=== PATIENT | female | born 1980 | race Caucasian/White ===

== ENCOUNTER → 2023-12-27 07:23 | Outpatient (REF) | payer OTHER, SELFPAY | LOC: RAD 07:23 | PROVIDERS: ATTENDING PHYSICIAN Physician Assistant; FAMILY PHYSICIAN Family Medicine | DX: E04.1 Nontoxic single thyroid nodule (principal) | CPT/HCPCS: 76536 ==

== ENCOUNTER → 2024-02-05 08:50 | Outpatient (REF) | payer OTHER, SELFPAY ==
[2024-02-05 09:05] VITALS: BP 103/59; BP_SYST 71
== END ==
LOC: RADI 08:50
PROVIDERS: ATTENDING PHYSICIAN Physician Assistant; FAMILY PHYSICIAN Family Medicine
DX: E04.1 Nontoxic single thyroid nodule (principal)
CPT/HCPCS: 88173; 10005

== ENCOUNTER → 2024-09-21 13:50 | Outpatient (REF) | payer OTHER, SELFPAY | LOC: WDC 13:50 | PROVIDERS: ATTENDING PHYSICIAN Obstetrics & Gynecology Gynecology | DX: Z12.31 Encounter for screening mammogram for malignant neoplasm of breast (principal) | CPT/HCPCS: 77063; 77067 ==

== ENCOUNTER → 2024-11-23 06:47 | Outpatient (REF) | payer OTHER, SELFPAY | LOC: RAD 06:47 | PROVIDERS: ATTENDING PHYSICIAN Physician Assistant; FAMILY PHYSICIAN Family Medicine | DX: E04.1 Nontoxic single thyroid nodule (principal) | CPT/HCPCS: 76536 ==